=== PATIENT | female | born 1955 | race Caucasian/White ===

== ENCOUNTER 2021-06-12 18:25 | Emergency (ER) | payer MEDICARE | END 2021-06-12 21:10 | disposition home or self-care (01) | LOC: FER 18:25 | DX: S09.90XA Unspecified injury of head, initial encounter (principal); S80.01XA Contusion of right knee, initial encounter; M54.50 Low back pain, unspecified; I10 Essential (primary) hypertension; J44.9 Chronic obstructive pulmonary disease, unspecified; Z88.0 Allergy status to penicillin; Z87.891 Personal history of nicotine dependence; W19.XXXA Unspecified fall, initial encounter; Y92.009 Unspecified place in unspecified non-institutional (private) residence as the place of occurrence of the external cause | CPT/HCPCS: 70450; 72131; 73030; 73060; 73560 ==

== ENCOUNTER 2021-08-19 15:25 | Inpatient (IN) | payer MEDICARE ==
[~2021-08-19] VITALS: Ht 160 cm; Wt 151.1 kg
[2021-08-19 16:48] LABS: BASOPHIL 0.7 % (0-2); EOSINOPHIL 0.5 % (0-7); HCT 38.7 % (37.0-47.0); HGB 12.2 g/dl (12.5-16.0); LYMPHOCYTE 25.7 % (15-48); MCH 31.2 pg (25.0-31.0); MCHC 31.5 g/dL (32.0-36.0); MONOCYTE 8.5 % (0-12); MPV 9.4 fL (6.0-9.5); NEUTROPHIL 63.9 % (41-80); NRBC 0; PLT 210 K/uL (150-400); RBC 3.91 M/uL (4.20-5.40); RDW 17.2 % (11.5-14.0); WBC 6.1 K/uL (4.0-10.5)
[2021-08-19 16:53] LABS: INR 1.04 (0.9-1.2); PTT 21.3 SECONDS (24.4-34.7)
[2021-08-19 16:54] LABS: D-DIMER 0.76 ug/mLFEU (0.00-0.41)
[2021-08-19 17:08] LABS: ALBUMIN 3.2 g/dL (3.4-5.0); BILIRUBIN - TOTAL 0.5 mg/dL (0.2-1.0); CKMB 1.7 ng/mL (0.0-3.6); CREATININE 0.9 mg/dL (0.51-0.95); GLOBULIN (CALCULATION) 3.4 g/dL; TOTAL PROTEIN 6.6 g/dL (6.4-8.2)
[2021-08-19 17:09] LABS: BILIRUBIN 1+ mg/dL (NEGATIVE); BLOOD NEGATIVE Ery/uL (NEGATIVE); CLARITY CLEAR (CLEAR); COLOR YELLOW (YELLOW); GLUCOSE (U) NORMAL (NORMAL); LEUKOCYTES NEGATIVE Leu/uL (NEGATIVE); NITRITE NEGATIVE (NEGATIVE); PROTEIN TRACE (LOW) mg/dL (NEGATIVE); SPECIFIC GRAVITY >=1.030 (1.001-1.030); UROBILINOGEN 0.2 mg/dL (0.2-1.0)
[2021-08-19 17:17] LABS: URINARY RBC RARE
[2021-08-20 00:15] LABS: RETICULOCYTE COUNT 3.8 % (1.0-2.0)
[2021-08-20 00:42] LABS: FOLIC ACID (SERUM) 15.3 ng/mL (8.6-58.9)
[2021-08-20] MEDS ORDERED: PREDNISONE20 MG PO (01:36)
[2021-08-20] MEDS ORDERED: MECLIZINE HCL25 MG PO (01:36)
[2021-08-20] MEDS ORDERED: CLONAZEPAM 1MG T1 MG PO (01:37)
[2021-08-20] MEDS ORDERED: TERBINAFINE HC250 MG PO (01:40)
[2021-08-20] MEDS ORDERED: NEURONTIN300 MG PO (01:41)
[2021-08-20] MEDS ORDERED: VENLAFAXINE HC150 MG PO (01:41)
[2021-08-20] MEDS ORDERED: AMLODIPINE BESY10 MG PO (01:41)
[2021-08-20] MEDS ORDERED: DUONEB 2.5-0.5M1 AMP INH (01:42)
[2021-08-20] MEDS ORDERED: DESYREL50 MG PO (01:42)
[2021-08-20] MEDS ORDERED: ATORVASTATIN CA10 MG PO (01:43)
[2021-08-20] MEDS ORDERED: VITAMIN D21250 MCG PO (01:43)
[2021-08-20] MEDS ORDERED: SENNA-PLUS TAB1 EACH PO (01:44)
[2021-08-20 07:35] LABS: BASOPHIL 0.7 % (0-2); EOSINOPHIL 0.7 % (0-7); HCT 37.8 % (37.0-47.0); HGB 11.8 g/dl (12.5-16.0); MCH 30.6 pg (25.0-31.0); MCHC 31.2 g/dL (32.0-36.0); MCV 98.2 fL (78.0-100.0); MONOCYTE 9.4 % (0-12); MPV 9.3 fL (6.0-9.5); NEUTROPHIL 64.5 % (41-80); NRBC 0; PLT 201 K/uL (150-400); RBC 3.85 M/uL (4.20-5.40); RDW 17.3 % (11.5-14.0); WBC 5.8 K/uL (4.0-10.5)
[2021-08-20 08:06] LABS: CREATININE 1.07 mg/dL (0.51-0.95); FT4 (FREE T4) 1.4 ng/dL (0.76-1.46); MAGNESIUM 1.5 mg/dL (1.8-2.4); POTASSIUM 3.5 mmol/L (3.5-5.1)
[2021-08-20] MEDS ORDERED: COMBIGAN EYE DRO5 ML OS (08:50)
[2021-08-20 11:10] LABS: FT4 (FREE T4) 1.4 ng/dL (0.76-1.46)
--- NOTE | 2021-08-20 18:12 | NUR ---
08/20/21 Ms Miller lives at home with her spouse and daughter. She is legally blind and has worked with [facility] [employer] [facility]. Ms. Miller has a 3in1, cane, and s. seat. - Per pt choice, a referral was made to [facility] for nursing, PT,OT and sw. Aide Miller, daughter, asked if she could be a paid caregiver. [facility] was requested to evaluate for a Waiver program. Ms. Miller was educated to [facility]. - Will monitor for 02 needs. Please notify [facility] at [phone] if patient discharges over the weekend.
[2021-08-21 06:04] LABS: BASOPHIL 0.7 % (0-2); EOSINOPHIL 0.7 % (0-7); HCT 33.7 % (37.0-47.0); HGB 10.5 g/dl (12.5-16.0); LYMPHOCYTE 35.1 % (15-48); MCH 31.4 pg (25.0-31.0); MCHC 31.2 g/dL (32.0-36.0); MCV 100.9 fL (78.0-100.0); MONOCYTE 12.6 % (0-12); MPV 9.6 fL (6.0-9.5); NEUTROPHIL 50.2 % (41-80); NRBC 0; PLT 188 K/uL (150-400); RBC 3.34 M/uL (4.20-5.40); RDW 17.3 % (11.5-14.0); WBC 4.4 K/uL (4.0-10.5)
[2021-08-21 06:18] LABS: BUN/CREAT RATIO (CALC) 15.3 RATIO; CREATININE 1.18 mg/dL (0.51-0.95); POTASSIUM 3.3 mmol/L (3.5-5.1)
--- NOTE | 2021-08-21 13:44 | NUR ---
08/21/21 Ms. Miller has decided to go for a SNF placement. Referrals have been sent to [facility], and [facility] per patient choice.
--- NOTE | 2021-08-21 15:05 | NUR ---
08/21 [facility] approved for admission pending authorization.
--- NOTE | 2021-08-21 18:28 | NUR ---
PT HAD COMPLAINTS OF CHEST PAIN AT 1730 PT STATES IT IS INTERMITENT, AND IT WAS ONLY A 3/10 CURRENTLY, AND A 8/10 WHEN THE PAIN IS ACTIVE. STATES THAT THE PAIN IS MIDSTERNAL. [facility] WAS NOTIFED AND NORCO WAS ORDERED AND GIVEN TO PATIENT SEE EMAR
[2021-08-22 06:21] LABS: BASOPHIL 0.5 % (0-2); EOSINOPHIL 0.7 % (0-7); HCT 34.5 % (37.0-47.0); HGB 10.5 g/dl (12.5-16.0); LYMPHOCYTE 27.9 % (15-48); MCH 30.8 pg (25.0-31.0); MCHC 30.4 g/dL (32.0-36.0); MCV 101.2 fL (78.0-100.0); MONOCYTE 10.8 % (0-12); MPV 9.4 fL (6.0-9.5); NEUTROPHIL 59.6 % (41-80); NRBC 0; PLT 217 K/uL (150-400); RBC 3.41 M/uL (4.20-5.40); RDW 17.2 % (11.5-14.0); WBC 5.7 K/uL (4.0-10.5)
[2021-08-22 06:39] LABS: BUN/CREAT RATIO (CALC) 17.1 RATIO; CREATININE 1.17 mg/dL (0.51-0.95); POTASSIUM 4.5 mmol/L (3.5-5.1)
--- NOTE | 2021-08-22 12:09 | NUR ---
08/22 Still awaiting insurance approval for admission to [facility]. [facility] contact = Tash Abiodun - [phone]. [employer] will deliver a portable 02 tank to the hospital on 08/22 to loan to the family for transport to [facility]. Please advise the family to return to [employer]. Please return the portable tank to the manager social services's office if the 02 tank is not needed for transport.
[2021-08-23 05:56] LABS: BASOPHIL 0.5 % (0-2); EOSINOPHIL 0.8 % (0-7); HGB 10.4 g/dl (12.5-16.0); LYMPHOCYTE 30.5 % (15-48); MCH 31.1 pg (25.0-31.0); MCHC 30.6 g/dL (32.0-36.0); MCV 101.8 fL (78.0-100.0); MONOCYTE 10.6 % (0-12); MPV 9.4 fL (6.0-9.5); NEUTROPHIL 56.8 % (41-80); NRBC 0; PLT 226 K/uL (150-400); RBC 3.34 M/uL (4.20-5.40); WBC 5.9 K/uL (4.0-10.5)
[2021-08-23 07:36] LABS: BUN/CREAT RATIO (CALC) 24.3 RATIO; CREATININE 1.07 mg/dL (0.51-0.95); POTASSIUM 4.4 mmol/L (3.5-5.1)
[2021-08-23 23:17] LABS: BILIRUBIN NEGATIVE (NEGATIVE); BLOOD 3+ Ery/uL (NEGATIVE); CLARITY CLOUDY (CLEAR); COLOR YELLOW (YELLOW); GLUCOSE (U) NORMAL (NORMAL); LEUKOCYTES 2+ Leu/uL (NEGATIVE); NITRITE POSITIVE (NEGATIVE); PROTEIN 1+ mg/dL (NEGATIVE); UROBILINOGEN 0.2 mg/dL (0.2-1.0)
[2021-08-23 23:25] LABS: BACTERIA 3+; URINARY RBC TNTC; URINARY WBC TNTC
[2021-08-24 05:34] LABS: BASOPHIL 0.8 % (0-2); EOSINOPHIL 0.8 % (0-7); HCT 32.8 % (37.0-47.0); HGB 10.1 g/dl (12.5-16.0); LYMPHOCYTE 29.9 % (15-48); MCH 31.2 pg (25.0-31.0); MCHC 30.8 g/dL (32.0-36.0); MCV 101.2 fL (78.0-100.0); MONOCYTE 11.1 % (0-12); MPV 9.2 fL (6.0-9.5); NEUTROPHIL 56.6 % (41-80); NRBC 0; PLT 219 K/uL (150-400); RBC 3.24 M/uL (4.20-5.40); RDW 16.9 % (11.5-14.0); WBC 5.3 K/uL (4.0-10.5)
[2021-08-24 05:50] LABS: BUN/CREAT RATIO (CALC) 25.7 RATIO; CREATININE 1.09 mg/dL (0.51-0.95); POTASSIUM 4.4 mmol/L (3.5-5.1)
[2021-08-25 06:00] LABS: BASOPHIL 0.6 % (0-2); EOSINOPHIL 1.2 % (0-7); HCT 33.8 % (37.0-47.0); HGB 10.4 g/dl (12.5-16.0); LYMPHOCYTE 25.7 % (15-48); MCH 30.9 pg (25.0-31.0); MCHC 30.8 g/dL (32.0-36.0); MCV 100.3 fL (78.0-100.0); MONOCYTE 12.7 % (0-12); MPV 9.2 fL (6.0-9.5); NEUTROPHIL 59.2 % (41-80); NRBC 0.8; PLT 225 K/uL (150-400); RBC 3.37 M/uL (4.20-5.40); RDW 16.7 % (11.5-14.0); WBC 4.9 K/uL (4.0-10.5)
[2021-08-25 06:04] LABS: BUN/CREAT RATIO (CALC) 26.4 RATIO; CREATININE 1.06 mg/dL (0.51-0.95); POTASSIUM 4.4 mmol/L (3.5-5.1)
[2021-08-25 21:16] LABS: BUN/CREAT RATIO (CALC) 24.8 RATIO; CREATININE 1.01 mg/dL (0.51-0.95); POTASSIUM 4.8 mmol/L (3.5-5.1)
[2021-08-26 05:42] LABS: BASOPHIL 0.7 % (0-2); EOSINOPHIL 1.1 % (0-7); LYMPHOCYTE 26.1 % (15-48); MCH 30.9 pg (25.0-31.0); MCHC 30.6 g/dL (32.0-36.0); MCV 101.1 fL (78.0-100.0); MONOCYTE 11.3 % (0-12); MPV 8.9 fL (6.0-9.5); NEUTROPHIL 59.9 % (41-80); NRBC 0; PLT 224 K/uL (150-400); RBC 3.56 M/uL (4.20-5.40); RDW 16.2 % (11.5-14.0); WBC 4.6 K/uL (4.0-10.5)
[2021-08-26 06:09] LABS: BUN/CREAT RATIO (CALC) 24.7 RATIO; CREATININE 0.97 mg/dL (0.51-0.95); POTASSIUM 4.4 mmol/L (3.5-5.1)
[2021-08-26] MEDS ORDERED: XOPENEX (11.25 MG/3 NEB (07:33)
[2021-08-26] MEDS ORDERED: DIGITEK250 MCG PO ×2 (07:33→08:09)
[2021-08-26] MEDS ORDERED: ELIQUIS5 MG PO (07:33)
[2021-08-26] MEDS ORDERED: MAG-OXIDE 400M400 MG PO (07:33)
[2021-08-26] MEDS ORDERED: CLONAZEPAM 1MG T1 MG PO (07:33)
[2021-08-26] MEDS ORDERED: FLORANEX TABLE1 EACH PO (07:33)
[2021-08-26] MEDS ORDERED: LOPRESSOR25 MG PO (07:33)
[2021-08-26] MEDS ORDERED: MACROBID100 MG PO (07:39)
[2021-08-26] MEDS ORDERED: BUMEX1 MG PO (07:46)
[2021-08-26] MEDS ORDERED: PANTOPRAZOLE SO40 MG PO (08:01)
--- NOTE | 2021-08-26 12:30 | NUR ---
08/26 [facility] has received insurance authorization for admission today.
== END 2021-08-26 15:59 | DRG 291 ==
LOC: FER 15:25 → FTCU 21:16 → FMS 08-23 06:00 → FTCU 08-24 15:50
PROVIDERS: Emergency Medicine; Family Medicine; Internal Medicine Cardiovascular Disease; Nurse Practitioner Acute Care; ADMIT Internal Medicine
PROC: 05HY33Z Insertion of Infusion Device into Upper Vein, Percutaneous Approach (ICD-10-PCS; 2021-08-20)
PROC: B24BZZZ Ultrasonography of Heart with Aorta (ICD-10-PCS; principal; 2021-08-21)
DX: I13.0 Hypertensive heart and chronic kidney disease with heart failure and stage 1 through stage 4 chronic kidney disease, or unspecified chronic kidney disease (principal); I50.33 Acute on chronic diastolic (congestive) heart failure; N30.01 Acute cystitis with hematuria; Z68.43 Body mass index [BMI] 50.0-59.9, adult; K43.0 Incisional hernia with obstruction, without gangrene; I48.91 Unspecified atrial fibrillation; Z20.822 Contact with and (suspected) exposure to COVID-19; N18.30 Chronic kidney disease, stage 3 unspecified; D63.1 Anemia in chronic kidney disease; D53.9 Nutritional anemia, unspecified; M31.6 Other giant cell arteritis; H40.9 Unspecified glaucoma; E66.01 Morbid (severe) obesity due to excess calories; E83.42 Hypomagnesemia; B96.20 Unspecified Escherichia coli [E. coli] as the cause of diseases classified elsewhere; E88.09 Other disorders of plasma-protein metabolism, not elsewhere classified; R73.03 Prediabetes; H54.8 Legal blindness, as defined in USA; J44.9 Chronic obstructive pulmonary disease, unspecified; E78.5 Hyperlipidemia, unspecified; F41.9 Anxiety disorder, unspecified; F32.A Depression, unspecified; Z85.3 Personal history of malignant neoplasm of breast; Z90.49 Acquired absence of other specified parts of digestive tract; Z98.890 Other specified postprocedural states; Z79.899 Other long term (current) drug therapy; Z87.891 Personal history of nicotine dependence
CPT/HCPCS: 36415; 36600; 71045; 71275; 80048; 80053; 81001; 82553; 82607; 82728; 82746; 82803; 82962; 83036; 83540; 83735; 83880; 84439; 84443; 84481; 84484; 85025; 85379; 85610; 85730; 87076; 87088; 87186; 87449; 93005; 94760; 94762; 96365; 96366; 96375; 97162; 97166; 97530; 97530-GP; 97535; J0692; J0696; J1160; J1650; J1940; J2405; J3420; J3475; J7512; Q9967; U0002

== ENCOUNTER 2021-09-04 21:31 | Inpatient (IN) | payer MEDICARE ==
[~2021-09-04] VITALS: Ht 160 cm; Wt 151.1 kg
[~2021-09-04 21:31] MED LIST: AMLODIPINE BESY10 MG PO; ATORVASTATIN CA10 MG PO; BUMEX1 MG PO; CLONAZEPAM 1MG T1 MG PO; COMBIGAN EYE DRO5 ML OS; DESYREL50 MG PO; DIGITEK250 MCG PO; DUONEB 2.5-0.5M1 AMP INH; ELIQUIS5 MG PO; FLORANEX TABLE1 EACH PO; LOPRESSOR25 MG PO; MACROBID100 MG PO; MAG-OXIDE 400M400 MG PO; MECLIZINE HCL25 MG PO; NEURONTIN300 MG PO; PANTOPRAZOLE SO40 MG PO; PREDNISONE20 MG PO; SENNA-PLUS TAB1 EACH PO; TERBINAFINE HC250 MG PO; VENLAFAXINE HC150 MG PO; VITAMIN D21250 MCG PO; XOPENEX (11.25 MG/3 NEB
[2021-09-05 08:56] LABS: BASOPHIL 0.8 % (0-2); EOSINOPHIL 0.1 % (0-7); HCT 35.6 % (37.0-47.0); HGB 11.2 g/dl (12.5-16.0); LYMPHOCYTE 18.6 % (15-48); MCH 31.3 pg (25.0-31.0); MCHC 31.5 g/dL (32.0-36.0); MCV 99.4 fL (78.0-100.0); MONOCYTE 12.8 % (0-12); MPV 9.6 fL (6.0-9.5); NRBC 0; PLT 226 K/uL (150-400); RBC 3.58 M/uL (4.20-5.40); RDW 15.7 % (11.5-14.0); WBC 7.3 K/uL (4.0-10.5)
[2021-09-05 09:15] LABS: ALBUMIN 3.5 g/dL (3.4-5.0); BILIRUBIN - TOTAL 0.4 mg/dL (0.2-1.0); BUN/CREAT RATIO (CALC) 14.1 RATIO; CREATININE 1.49 mg/dL (0.51-0.95); GLOBULIN (CALCULATION) 3.9 g/dL; POTASSIUM 4.5 mmol/L (3.5-5.1); TOTAL PROTEIN 7.4 g/dL (6.4-8.2)
[2021-09-05 09:32] LABS: BILIRUBIN 1+ mg/dL (NEGATIVE); BLOOD 3+ Ery/uL (NEGATIVE); CLARITY CLEAR (CLEAR); COLOR YELLOW (YELLOW); GLUCOSE (U) NORMAL (NORMAL); LEUKOCYTES NEGATIVE Leu/uL (NEGATIVE); NITRITE NEGATIVE (NEGATIVE); PROTEIN TRACE (LOW) mg/dL (NEGATIVE); SPECIFIC GRAVITY >=1.030 (1.001-1.030); UROBILINOGEN 0.2 mg/dL (0.2-1.0)
[2021-09-05 09:44] LABS: SQUAMOUS EPITHELIAL CELLS 20-50
[2021-09-05 09:46] LABS: BACTERIA 1+
[2021-09-05 09:47] LABS: AMORPHOUS URATES CRYSTALS TRACE; MUCOUS TRACE
[2021-09-06 04:07] LABS: BASOPHIL 0.7 % (0-2); EOSINOPHIL 0.7 % (0-7); HCT 28.9 % (37.0-47.0); HGB 9.2 g/dl (12.5-16.0); LYMPHOCYTE 29.4 % (15-48); MCH 31.3 pg (25.0-31.0); MCHC 31.8 g/dL (32.0-36.0); MCV 98.3 fL (78.0-100.0); MONOCYTE 15.7 % (0-12); MPV 9.4 fL (6.0-9.5); NEUTROPHIL 53.3 % (41-80); NRBC 0; PLT 181 K/uL (150-400); RBC 2.94 M/uL (4.20-5.40); WBC 4.2 K/uL (4.0-10.5)
[2021-09-06 04:42] LABS: BUN/CREAT RATIO (CALC) 15.3 RATIO; CREATININE 0.98 mg/dL (0.51-0.95); MAGNESIUM 1.5 mg/dL (1.8-2.4); POTASSIUM 3.3 mmol/L (3.5-5.1)
[2021-09-07 04:48] LABS: BASOPHIL 1.1 % (0-2); EOSINOPHIL 1.4 % (0-7); HCT 29.2 % (37.0-47.0); LYMPHOCYTE 35.5 % (15-48); MCH 31.6 pg (25.0-31.0); MCHC 30.8 g/dL (32.0-36.0); MCV 102.5 fL (78.0-100.0); MONOCYTE 17.8 % (0-12); MPV 9.3 fL (6.0-9.5); NEUTROPHIL 43.7 % (41-80); NRBC 0.5; PLT 187 K/uL (150-400); RBC 2.85 M/uL (4.20-5.40); RDW 16.3 % (11.5-14.0); WBC 3.7 K/uL (4.0-10.5)
[2021-09-07 05:05] LABS: BUN/CREAT RATIO (CALC) 17.6 RATIO; CREATININE 0.91 mg/dL (0.51-0.95); POTASSIUM 3.8 mmol/L (3.5-5.1)
[2021-09-07] MEDS ORDERED: TRAMADOL HCL50 MG PO (08:24)
== END 2021-09-07 12:30 | disposition home health service (06) | DRG 91 ==
LOC: FTCU 21:31 → FER 21:31 → FTCU 09-05 10:04
PROVIDERS: Allergy & Immunology Allergy; Emergency Medicine; Nurse Practitioner Acute Care; ADMIT Family Medicine
PROC: 5A09457 Assistance with Respiratory Ventilation, 24-96 Consecutive Hours, Continuous Positive Airway Pressure (ICD-10-PCS; principal; 2021-09-05)
PROC: 5A09357 Assistance with Respiratory Ventilation, Less than 24 Consecutive Hours, Continuous Positive Airway Pressure (ICD-10-PCS; 2021-09-07)
DX: G92.8 Other toxic encephalopathy (principal); J96.21 Acute and chronic respiratory failure with hypoxia; I50.33 Acute on chronic diastolic (congestive) heart failure; J96.22 Acute and chronic respiratory failure with hypercapnia; E66.2 Morbid (severe) obesity with alveolar hypoventilation; N17.9 Acute kidney failure, unspecified; M84.461A Pathological fracture, right tibia, initial encounter for fracture; J44.1 Chronic obstructive pulmonary disease with (acute) exacerbation; I47.1 Supraventricular tachycardia; Z68.43 Body mass index [BMI] 50.0-59.9, adult; I13.0 Hypertensive heart and chronic kidney disease with heart failure and stage 1 through stage 4 chronic kidney disease, or unspecified chronic kidney disease; Z99.81 Dependence on supplemental oxygen; Z20.822 Contact with and (suspected) exposure to COVID-19; T40.2X5A Adverse effect of other opioids, initial encounter; N18.30 Chronic kidney disease, stage 3 unspecified; M16.11 Unilateral primary osteoarthritis, right hip; F41.9 Anxiety disorder, unspecified; R73.03 Prediabetes; R82.90 Unspecified abnormal findings in urine; F32.A Depression, unspecified; H54.8 Legal blindness, as defined in USA; Z85.3 Personal history of malignant neoplasm of breast; Z90.49 Acquired absence of other specified parts of digestive tract; Z98.890 Other specified postprocedural states; Z88.0 Allergy status to penicillin; Z79.899 Other long term (current) drug therapy
CPT/HCPCS: 36415; 36600; 71045; 73560; 73700; 80048; 80053; 80162; 81001; 82803; 82962; 83735; 83880; 84145; 85025; 87088; 93005; 94010; 94640; 94660; 94762; 96372; 96374; J1170; J2310; J7040; U0002

== ENCOUNTER 2021-09-27 16:00 | Emergency (ER) | payer MEDICARE ==
[~2021-09-27 16:00] MED LIST changes: +TRAMADOL HCL50 MG PO
[2021-09-27 18:16] LABS: BASOPHIL 0.3 % (0-2); EOSINOPHIL 0 % (0-7); HCT 37.6 % (37.0-47.0); HGB 11.7 g/dl (12.5-16.0); LYMPHOCYTE 15.3 % (15-48); MCH 30.5 pg (25.0-31.0); MCHC 31.1 g/dL (32.0-36.0); MCV 98.2 fL (78.0-100.0); MONOCYTE 14.1 % (0-12); MPV 9.4 fL (6.0-9.5); NRBC 0; PLT 296 K/uL (150-400); RBC 3.83 M/uL (4.20-5.40); WBC 5.9 K/uL (4.0-10.5)
[2021-09-27 19:03] LABS: ALBUMIN 2.7 g/dL (3.4-5.0); BILIRUBIN - TOTAL 0.6 mg/dL (0.2-1.0); BUN/CREAT RATIO (CALC) 18.2 RATIO; CREATININE 0.99 mg/dL (0.51-0.95); GLOBULIN (CALCULATION) 4.1 g/dL; TOTAL PROTEIN 6.8 g/dL (6.4-8.2)
[2021-09-27 19:08] LABS: POTASSIUM 3.6 mmol/L (3.5-5.1)
[2021-09-28 14:59] LABS: BILIRUBIN 1+ mg/dL (NEGATIVE); BLOOD NEGATIVE Ery/uL (NEGATIVE); CLARITY CLEAR (CLEAR); COLOR YELLOW (YELLOW); GLUCOSE (U) NORMAL (NORMAL); LEUKOCYTES NEGATIVE Leu/uL (NEGATIVE); NITRITE POSITIVE (NEGATIVE); PROTEIN TRACE (LOW) mg/dL (NEGATIVE); SPECIFIC GRAVITY 1.025 (1.001-1.030); UROBILINOGEN 0.2 mg/dL (0.2-1.0)
[2021-09-28 15:07] LABS: BACTERIA TRACE
== END 2021-09-28 16:15 | disposition other institution (70) ==
LOC: FER 16:00
PROVIDERS: Physician Assistant
DX: K56.609 Unspecified intestinal obstruction, unspecified as to partial versus complete obstruction (principal); R19.7 Diarrhea, unspecified; I13.0 Hypertensive heart and chronic kidney disease with heart failure and stage 1 through stage 4 chronic kidney disease, or unspecified chronic kidney disease; N18.30 Chronic kidney disease, stage 3 unspecified; I50.9 Heart failure, unspecified; J44.9 Chronic obstructive pulmonary disease, unspecified; Z88.0 Allergy status to penicillin; Z88.1 Allergy status to other antibiotic agents; I48.91 Unspecified atrial fibrillation; Z79.899 Other long term (current) drug therapy; Z79.01 Long term (current) use of anticoagulants; Z20.822 Contact with and (suspected) exposure to COVID-19
CPT/HCPCS: 36415; 74018; 80053; 81001; 83690; 85025; J1170; J2270; J2405; J7030; U0002